=== PATIENT | male | born 1935 | race Caucasian/White ===

== ENCOUNTER 2017-02-03 17:33 | Observation (INO) | payer MEDICARE ==
[~2017-02-03] VITALS: Ht 177.8 cm; Wt 89.8 kg
[2017-02-03 17:59] LABS: HEMOGLOBIN 13.9 gm/dl (14.0-17.5); RED BLOOD COUNT 4.51 M/UL (4.20-5.50); WHITE BLOOD COUNT 5.4 K/UL (4.5-11.0)
[2017-02-04] MEDS ORDERED: VENLAFAXINE HCL75 M2 PO (00:53)
[2017-02-04] MEDS ORDERED: ALLOPURINOL100 MG PO (00:53)
[2017-02-04] MEDS ORDERED: NORVASC 5 MG TAB5 MG PO (00:54)
[2017-02-04] MEDS ORDERED: NEURONTIN 300300 MG PO (00:55)
[2017-02-04] MEDS ORDERED: LEVOTHYROXINE25 MCG PO (00:55)
[2017-02-04] MEDS ORDERED: COLACE 100MG C100 MG PO (00:55)
[2017-02-04] MEDS ORDERED: NEXIUM20 MG PO (00:55)
[2017-02-04] MEDS ORDERED: PRAVACHOL40 MG PO (00:56)
[2017-02-04] MEDS ORDERED: METOPROLOL SUCC25 MG PO (00:56)
[2017-02-05] MEDS ORDERED: OMNICEF 300 MG300 MG PO (19:23)
[2017-02-05] MEDS ORDERED: PROTONIX40 MG PO (19:42)
== END 2017-02-05 20:22 | disposition home or self-care (01) ==
LOC: ER1 17:33 → MED SURG 4 21:05 → ZEROF 21:05 → MED SURG 4 23:56
PROVIDERS: Emergency Medicine; ADMIT Internal Medicine
DX: J18.9 Pneumonia, unspecified organism (principal); R53.1 Weakness; R53.83 Other fatigue; E78.5 Hyperlipidemia, unspecified; E03.9 Hypothyroidism, unspecified; D46.9 Myelodysplastic syndrome, unspecified; I10 Essential (primary) hypertension; K21.9 Gastro-esophageal reflux disease without esophagitis; Z90.49 Acquired absence of other specified parts of digestive tract; Z88.5 Allergy status to narcotic agent
CPT/HCPCS: ECHO; 36415; 70450; 71010; 80048; 80053; 81001; 82550; 82553; 83735; 83874; 83880; 84439; 84443; 84484; 85025; 87040; 87077; 87086; 87186; 93005; 93306; 96365; 99285; G0378; J1956; J7030

== ENCOUNTER → 2017-02-08 | Outpatient (CLI) | payer MEDICARE ==
[~2017-02-08] MED LIST: ALLOPURINOL100 MG PO; COLACE 100MG C100 MG PO; LEVOTHYROXINE25 MCG PO; METOPROLOL SUCC25 MG PO; NEURONTIN 300300 MG PO; NEXIUM20 MG PO; NORVASC 5 MG TAB5 MG PO; OMNICEF 300 MG300 MG PO; PRAVACHOL40 MG PO; PROTONIX40 MG PO; VENLAFAXINE HCL75 M2 PO
== END ==
LOC: RAD 11:07
DX: R05 Cough (principal); J81.1 Chronic pulmonary edema; K44.9 Diaphragmatic hernia without obstruction or gangrene
CPT/HCPCS: 71020

== ENCOUNTER → 2021-02-01 | Outpatient (CLI) | payer OTHER, SELFPAY ==
[~2021-02-01] MED LIST changes: +ESOMEPRAZOLE MA40 MG PO; +KEFLEX CAP 500500 MG PO; +PHENERGAN 25 MG25 M1 PO
== END ==
LOC: US 09:30 → ECHO 10:00
DX: R01.1 Cardiac murmur, unspecified (principal); N18.9 Chronic kidney disease, unspecified; N28.1 Cyst of kidney, acquired
CPT/HCPCS: ECHO; 93306

== ENCOUNTER 2021-03-20 11:18 | Inpatient (IN) | payer OTHER ==
[~2021-03-20] VITALS: Ht 172.7 cm; Wt 90.7 kg
[~2021-03-20 11:18] MED LIST changes: -ESOMEPRAZOLE MA40 MG PO; -NORVASC 5 MG TAB5 MG PO; +NORVASC5 MG PO; -PHENERGAN 25 MG25 M1 PO
[2021-03-20 13:29] LABS: RED BLOOD COUNT 4.08 M/UL (4.20-5.50); WHITE BLOOD COUNT 5.7 K/UL (4.5-11.0)
[2021-03-20] MEDS ORDERED: ESOMEPRAZOLE MA40 MG PO (19:45)
[2021-03-20] MEDS ORDERED: COLACE 100MG C100 MG PO (19:50)
[2021-03-20] MEDS ORDERED: PHENERGAN 25 MG25 M1 PO (19:54)
[2021-03-21 06:42] LABS: HEMOGLOBIN 11.8 gm/dl (14.0-17.5); RED BLOOD COUNT 3.76 M/UL (4.20-5.50)
[2021-03-22] MEDS ORDERED: GABAPENTIN100 MG PO (12:26)
[2021-03-22] MEDS ORDERED: HYDROCODONE-AC1 EACH PO (12:26)
--- NOTE | 2021-03-22 15:53 | NUR ---
WAITING FOR CONTACT INFO TO CALL REPORT TO [facility]. CASE MANAGEMENT WILL LET [facility] KNOW IF [facility] OR PROFESSIONAL WILL BE OUT TO SEE PT.
== END 2021-03-22 16:38 | disposition home or self-care (01) | DRG 309 ==
LOC: ER1 11:18 → CDU 17:05 → M/S 17:05
PROVIDERS: Physician Assistant Medical; ADMIT Internal Medicine Infectious Disease
DX: R00.1 Bradycardia, unspecified (principal); E66.2 Morbid (severe) obesity with alveolar hypoventilation; S30.1XXA Contusion of abdominal wall, initial encounter; S70.02XA Contusion of left hip, initial encounter; R09.02 Hypoxemia; Z20.822 Contact with and (suspected) exposure to COVID-19; I12.9 Hypertensive chronic kidney disease with stage 1 through stage 4 chronic kidney disease, or unspecified chronic kidney disease; N18.30 Chronic kidney disease, stage 3 unspecified; D46.9 Myelodysplastic syndrome, unspecified; K44.9 Diaphragmatic hernia without obstruction or gangrene; M51.36 Other intervertebral disc degeneration, lumbar region; R26.9 Unspecified abnormalities of gait and mobility; K21.9 Gastro-esophageal reflux disease without esophagitis; E03.9 Hypothyroidism, unspecified; E78.5 Hyperlipidemia, unspecified; M10.9 Gout, unspecified; Z87.440 Personal history of urinary (tract) infections; Z79.890 Hormone replacement therapy; Z90.49 Acquired absence of other specified parts of digestive tract; Z68.30 Body mass index [BMI] 30.0-30.9, adult; Z91.81 History of falling; Z79.899 Other long term (current) drug therapy; Z82.49 Family history of ischemic heart disease and other diseases of the circulatory system; Z80.6 Family history of leukemia; Z84.89 Family history of other specified conditions; Z88.5 Allergy status to narcotic agent
CPT/HCPCS: 36600; 70450; 71045; 72100; 72192; 73080; 73502; 80048; 80053; 82803; 83735; 83880; 84439; 84443; 85025; 85027; 93005; 93270; 94760; 97161; 97165; 99285; G0378; J2405; J7030; U0002

== ENCOUNTER → 2021-08-10 | Outpatient (CLI) | payer OTHER ==
[~2021-08-10] MED LIST changes: +ESOMEPRAZOLE MA40 MG PO; +GABAPENTIN100 MG PO; +HYDROCODONE-AC1 EACH PO; +PHENERGAN 25 MG25 M1 PO
== END ==
LOC: RAD 14:03
DX: R05.8 Other specified cough (principal); R91.8 Other nonspecific abnormal finding of lung field
CPT/HCPCS: 71046

== ENCOUNTER → 2021-10-20 | Outpatient (CLI) | payer MEDICARE | LOC: KOH-I 13:02 | DX: J18.9 Pneumonia, unspecified organism (principal) | CPT/HCPCS: 71046 ==

== ENCOUNTER → 2022-02-14 | Outpatient (CLI) | payer MEDICARE | LOC: EXRD 10:52 | DX: N18.9 Chronic kidney disease, unspecified (principal); N28.1 Cyst of kidney, acquired | CPT/HCPCS: 76775 ==